=== PATIENT | male | born 1945 | race Hispanic/Latino ===

== ENCOUNTER 2017-05-09 14:32 | Emergency (ER) | payer MEDICARE, OTHER ==
[2017-05-09 14:33] VITALS: BMI 25.4
--- NOTE | 2017-05-09 14:38 | ED PDOC ---
Arrival/HPI - General Time Seen by Provider: 05/09/17 14:37 Historian: Patient - History of Present Illness Narrative History of Present Illness (Text): 05/09/17 14:37 71 year old male, pmh including hypertension/hyperlipidemia/a.fibb/acoustic neuroma/cervical foramen stenosis, on eliquis, nkda, complaining of lt. hand pain and swelling on the thumb region x 1 week with no fall or trauma. Pt. stated that the thumb feels stiff, aggravated by movement, no numbness or tingling, no dizziness, no headache or night sweat, no rash, no palpitation, no other medical or psychological complaints. Past Medical History - Provider Review Nursing Documentation Reviewed: Yes - Tetanus Immunization Tetanus Immunization: Unknown - Cardiac Hx Pacemaker: No - Neurological Hx Paralysis: No - Hematological/Oncological Hx Blood Transfusions: No Hx Blood Transfusion Reaction: No - Musculoskeletal/Rheumatological Hx Musculoskeletal Disorders: Yes (HANDS) - Psychiatric Hx Emotional Abuse: No Hx Physical Abuse: No Hx Substance Use: No - Surgical History Hx Inguinal Hernia Repair: Yes (double hernia) - Anesthesia Hx Anesthesia Reactions: No Hx Malignant Hyperthermia: No - Suicidal Assessment Feels Threatened In Home Enviroment: No Family/Social History - Physician Review Nursing Documentation Reviewed: Yes Family/Social History: Unknown Family HX Smoking Status: Former Smoker Hx Alcohol Use: Yes (OCCASIONAL BEER) Hx Substance Use: No Hx Substance Use Treatment: No Allergies/Home Meds Allergies/Adverse Reactions: Allergies No Known Allergies Allergy (Verified 01/24/15 15:08) Home Medications: Home Meds Medication Instructions Recorded Confirmed Losartan/Hydrochlorothiazide 1 tab PO DAILY 07/27/12 05/09/17 [Hyzaar 25 mg-100 mg] Atorvastatin Calcium [Lipitor] 10 mg PO DAILY 02/20/14 05/09/17 Apixaban [Eliquis] 5 mg PO BID 02/21/14 05/09/17 Potassium Chloride 10 meq PO TID 02/21/14 05/09/17 Review of Systems - Review of Systems Constitutional: absent: Fatigue, Fevers Eyes: absent: Vision Changes ENT: absent: Hearing Changes Respiratory: absent: SOB, Cough Cardiovascular: absent: Chest Pain Gastrointestinal: absent: Abdominal Pain, Nausea, Vomiting Musculoskeletal: Arthralgias, Joint Swelling. absent: Back Pain, Neck Pain, Myalgias Skin: absent: Rash, Pruritis Neurological: absent: Headache Physical Exam Vital Signs Reviewed: Yes Vital Signs Temp Pulse Resp BP Pulse Ox 05/09/17 17:02 80 18 140/78 98 05/09/17 14:38 98.5 F 76 16 164/92 H 95 Temperature: Afebrile Blood Pressure: Hypertensive Pulse: Regular Respiratory Rate: Normal Appearance: Positive for: Well-Appearing, Non-Toxic Pain Distress: Moderate Mental Status: Positive for: Alert and Oriented X 3 - Systems Exam Head: Present: Atraumatic, Normocephalic Pupils: Present: PERRL Extroacular Muscles: Present: EOMI Conjunctiva: Present: Normal Mouth: Present: Moist Mucous Membranes Neck: Present: Normal Range of Motion Respiratory/Chest: Present: Clear to Auscultation, Good Air Exchange. No: Respiratory Distress, Accessory Muscle Use Cardiovascular: Present: Regular Rate and Rhythm, Normal S1, S2. No: Murmurs Abdomen: Present: Normal Bowel Sounds. No: Tenderness, Distention, Peritoneal Signs Back: Present: Normal Inspection Upper Extremity: Present: Normal Inspection, Other (Lt. hand/wrist: +ttp on the extensor tendon of the 1st digit thumb region, no scaphoid tenderness, FROM without limitation but pain upon 1st digit thumb flexion and extension against resistance, sensation intact, motor 5/5, +radial pulse, capillary refill< 2 seconds, neurovascular intact. ). No: Cyanosis, Edema Lower Extremity: Present: Normal Inspection. No: Edema Neurological: Present: GCS=15, CN II-XII Intact, Speech Normal Skin: Present: Warm, Dry, Normal Color. No: Rashes Psychiatric: Present: Alert, Oriented x 3, Normal Insight, Normal Concentration Medical Decision Making ED Course and Treatment: 05/09/17 14:59 -Lt. hand/wrist xray -LUE venuous doppler -Lt. thumb spica splint -Percocet (pt. has no relief with the percocet at home, I checked the [facility] and the patient has not receive narcotics for the past 1 year) -Observe and reassess 05/09/17 16:55 -Lt. wrist xray: +degenerative changes, no fracture or dislocation. -Lt. hand xray: +degenerative changes, no fracture or dislocation. -LUE Venuous Doppler: As per preliminary report, no acute DVT -Pt, refused percocet in the ER. -Discharge home with percocet, thumb spica splint, follow up with your own pmd and hand specialist/orthopedic within 2 days, return to the ER for any new or worsening signs or symptoms. - RAD Interpretation Radiology Orders: 05/09/17 14:52 DUPLEX UPPER EXTRM VEIN LEFT [US] Stat 05/09/17 14:53 HAND LEFT 3 VIEWS ROUTINE [RAD] Stat 05/09/17 14:55 WRIST, LEFT 3 VIEWS [RAD] Stat -Lt. wrist xray: normal lt. wrist radiograph. -Lt. hand xray: +osteoarthiritis -LUE Venuous Doppler: as per preliminary report, no acute DVT Ship'S Officer: Radiologist - Medication Orders Current Medication Orders: Discontinued Medications Oxycodone/Acetaminophen (Percocet 5/325 Mg Tab) 1 tab PO STAT STA Stop: 05/09/17 14:53 Last Admin: 05/09/17 16:15 Dose: Not Given Non-Admin Reason: Patient Refused - PA / AGRIBUSINESS PROFESSOR / Resident Statement MD/DO has reviewed & agrees with the documentation as recorded. Disposition/Present on Arrival - Present on Arrival Any Indicators Present on Arrival: No History of DVT/PE: No History of Uncontrolled Diabetes: No Urinary Catheter: No History of Decub. Ulcer: No History Surgical Site Infection Following: None - Disposition Have Diagnosis and Disposition been Completed?: Yes Diagnosis: Tendinitis, Osteoarthritis Disposition: HOME/ ROUTINE Disposition Time: 14:59 Patient Plan: Discharge Condition: GOOD Additional Instructions: -Discharge home with percocet, thumb spica splint, follow up with your own pmd and hand specialist/orthopedic within 2 days, return to the ER for any new or worsening signs or symptoms. Prescriptions: oxyCODONE/Acetaminophen [Percocet 5/325 mg Tab] 1 tab PO QID PRN #15 tab PRN Reason: Other Referrals: Ricardo Lau MD [Primary Care Provider] - Follow up with primary Nata Lima MD [Staff Provider] - Follow up with primary Leydi Toledo MD [Non-Staff] - Follow up with primary Forms: WORK NOTE
[2017-05-09 14:43] VITALS: TEMP 98.5
[2017-05-09] MEDS: Oxycodone/Acetaminophen 5/325 mg Tab PO STA ×2 (16:12→16:15)
[2017-05-09 17:03] VITALS: BP 140/78; PULSE 80; RESP 18; O2SAT 98
--- NOTE | 2017-05-09 20:02 | RAD ---
PROCEDURE: Left Hand Radiographs. HISTORY: lt. hand 1st digit thumb pain COMPARISON: None. FINDINGS: BONES: Normal. No fracture. JOINTS: NormalModerate osteoarthritis at CMC 1. Osteoarthritis DIP 2 through 5. Please note that the examination is limited due to failure to obtain a true AP view. Remaining joint spaces and articular surfaces are grossly preserved. Questionable osteoarthritis of MCP 3. No articular erosions. . No osteoarthritic changes. SOFT TISSUES: Normal. OTHER FINDINGS: None. IMPRESSION: Osteoarthritis CMC 1 and DIP 2 through 5. Questionable osteoarthritis MCP 3. No evidence of inflammatory arthritis.
--- NOTE | 2017-05-09 20:02 | US ---
PROCEDURE: Left upper extremity venous ultrasound HISTORY: Arm pain and swelling. Evaluate for deep venous thrombosis. PHYSICIAN(S): Keagan Aceves MD. FINDINGS: The visualized leftinternal jugular vein is sonographically normal and compressible. No evidence of obstruction or thrombus is seen. The visualized segments of the left subclavian vein are patent with normal waveforms. No sonographic evidence of obstruction or thrombosis is seen. The visualized deep venous system of the proximal leftupper extremity is sonographically normal and compressible. IMPRESSION: 1. No sonographic evidence for deep venous thrombosis in the visualized segments of the left upper extremity.
--- NOTE | 2017-05-09 20:02 | RAD ---
PROCEDURE: Left Wrist Radiographs. HISTORY: medical clearance COMPARISON: None. FINDINGS: BONES: Normal. No fracture. JOINTS: Normal. No dislocation. SOFT TISSUES: Normal. OTHER FINDINGS: None. IMPRESSION: Normal left wrist radiographs.
== END 2017-05-09 17:03 | disposition home or self-care (01) ==
LOC: ED 14:32
DX: M19.042 Primary osteoarthritis, left hand (principal); M77.8 Other enthesopathies, not elsewhere classified